=== PATIENT | male | born 1995 | race Caucasian/White ===

== ENCOUNTER 2022-01-05 07:33 | Emergency (ER) | payer SELFPAY | END 2022-01-05 08:40 | disposition home or self-care (01) | LOC: BURERS 07:33 | DX: S43.401A Unspecified sprain of right shoulder joint, initial encounter (principal); V00.211A Fall from ice-skates, initial encounter; Y93.21 Activity, ice skating | CPT/HCPCS: 73050 ==

== ENCOUNTER 2023-05-11 13:32 | Emergency (ER) | payer OTHER, SELFPAY | END 2023-05-11 14:35 | disposition home or self-care (01) | LOC: BURERS 13:32 | DX: S52.591A Other fractures of lower end of right radius, initial encounter for closed fracture (principal); W18.30XA Fall on same level, unspecified, initial encounter; Y93.39 Activity, other involving climbing, rappelling and jumping off; Y92.69 Other specified industrial and construction area as the place of occurrence of the external cause | CPT/HCPCS: 29105 ==